=== PATIENT | male | born 1980 | race Caucasian/White ===

== ENCOUNTER 2016-08-03 10:35 | Emergency (ER) | payer OTHER ==
[2016-08-03 11:54] LABS: BASOPHIL % 0.4 % (0-2); PLATELET COUNT 158 x10^3mcL (130-400); RED CELL DISTRIBUTION WIDTH 13.6 % (11.5-14.5)
[2016-08-03 11:59] LABS: CALCIUM 8.7 mg/dL (8.5-10.1); CARBON DIOXIDE 27.2 mmol/L (21-32); CHLORIDE SERUM 105 mmol/L (98-107); GFR1 > 60 mL/min; GLUCOSE SERUM 104 mg/dL (74-106); POTASSIUM SERUM 4.2 mmol/L (3.5-5.1); SODIUM SERUM 138 mmol/L (136-145)
[2016-08-03 11:59] LABS: microscopic required? YES; urine erythrocyte NEGATIVE (NEGATIVE)
[2016-08-03 12:01] LABS: AMPHETAMINE QUAL UR NONE DETECTED (NEG <=1000)
[2016-08-03 12:05] LABS: ALBUMIN 4.2 g/dL (3.4-5.0); ALKALINE PHOSPHATASE 71 U/L (46-116); ALT/SGPT 136 U/L (16-63); AST/SGOT 38 U/L (15-37); BILIRUBIN TOTAL 0.3 mg/dL (0.20-1.00); MAGNESIUM 1.9 mg/dL (1.8-2.4); TOTAL PROTEIN, SERUM 7.8 g/dL (6.4-8.2)
[2016-08-03 14:07] VITALS: BP 133/85
== END 2016-08-03 14:07 | disposition home or self-care (01) ==
LOC: ED 10:35
PROVIDERS: Emergency Medicine
DX: G40.409 Other generalized epilepsy and epileptic syndromes, not intractable, without status epilepticus (principal); S00.33XA Contusion of nose, initial encounter; S00.03XA Contusion of scalp, initial encounter; F41.9 Anxiety disorder, unspecified; M50.30 Other cervical disc degeneration, unspecified cervical region; F32.9 Major depressive disorder, single episode, unspecified; Z91.013 Allergy to seafood; X58.XXXA Exposure to other specified factors, initial encounter; Y93.89 Activity, other specified; Y92.89 Other specified places as the place of occurrence of the external cause; Y99.8 Other external cause status
CPT/HCPCS: 83880; G0480